=== PATIENT | male | born 1970 | race African-American/Black ===

== ENCOUNTER 2018-06-04 20:13 | Emergency (ER) | payer OTHER ==
[2018-06-04 20:23] VITALS: BP 135/79; PULSE 86; TEMP 98; BMI 24.3
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
[2018-06-04] MEDS ORDERED: KETOROLAC TROMETHAMINE 60 MG/2 ML VIAL IM ONE (21:34)
[2018-06-04] MEDS ORDERED: KETOROLAC TROMETHAMINE 60 MG/2 ML VIAL ONE (21:37)
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
== END 2018-06-04 21:50 | disposition home or self-care (01) ==
LOC: JERFT 20:13
PROC: 3E0233Z Introduction of Anti-inflammatory into Muscle, Percutaneous Approach (ICD-10-PCS; principal; 2018-06-04)
DX: M54.5 Low back pain (principal); V43.52XA Car driver injured in collision with other type car in traffic accident, initial encounter; Y93.89 Activity, other specified; Y92.410 Unspecified street and highway as the place of occurrence of the external cause
CPT/HCPCS: 99281-25